=== PATIENT | female | born 1975 | race Caucasian/White ===

== ENCOUNTER 2016-06-07 16:12 | Emergency (ER) | payer SELFPAY ==
[2016-06-07 16:15] VITALS: BP 128/91; BMI 28.1
--- NOTE | 2016-06-07 16:25 | DR.HEADACH ---
HPI - Time Seen Time seen: 16:20 - Primary Care Physician Primary Care Physician: REZA - HPI Comment HPI Comment: GENERALIZE HEADACHE WITH N/C AND PHOTOPHOBIA. PATIENT SEEING FLOATERS AND HAVE NUMBNESS IN THE LEGS. HISTORY MIGRAINE. NOT ON MEDICATIONS. HAVE NOT HAVE AN ATTACK FOR FEW YEARS. DENIES TRAUMA. NO FEVER. - Complaint/Symptoms Chief Complaint Doctors Comments: HEADACHE. Chief Complaint:: SEVERE MIGRAINE THAT BEGAN DURING THE NIGHT. PT. C/O N/V, LEGS TINGLING, AND SEEING DARK SPOTS. Pertinent History: Headache, Hypertension. denies: Back Pain, Dizziness/ Weakness, Head Injury, Multiple Trauma, MVA - Reviewed Nurses Notes Reviewed: Yes - Source History Provided: Patient - Mode of Arrival Mode of Arrival: Ambulatory - Timing Onset of Chief Complaint: 06/07/16 - Duration Since Onset: Constant Duration: Hours - Location Headache Location: Generalized - Quality Quality: Throbbing - Severity Headache Severity: Moderate - Context Headache Onset Circumstances: Spontaneous History of: Hypertension Prior Work Up: None - Modifying Factors Improves With: Nothing Worsens: Light - Associated Signs and Symptoms Associated Symptoms: Nausea, Vomitting, Numbess (LEG) Aura: Visual PMH - PMH Past Medical History: Yes Past Medical History: Headaches, Hypertension, Hypothyroidism Past Surgical History: Yes Surgical History: , Tonsillectomy Past Surgical History Comment: SINUS SURGERY - Family History History of Family Medical Conditions: Yes Family Medical History: [place], Coronary Artery Disease - Social History Does patient currently use any type of tobacco product: No Have you used tobacco products in the last 12 months: No Type of Tobacco Use: None Does any household member use tobacco: No Alcohol Use: None Do you use any recreational Drugs:: No Lives With: Spouse Lives Where: Home - infectious screening In the last 2 months have you had wt loss of >10#?: NO Have you had fever, night sweats or hemotysis?: No Have you traveled outside the country in the last 6 months?: No Isolation: Standard ROS - Review of Systems Constitutional: No Symptoms Reported. negative: Chills, Fever Eyes: No Symptoms Reported. negative: Eye Pain, Discharge ENTM: No Symptoms Reported. negative: Ear Pain, Nose Discharge, Nose Congestion , Throat Pain Respiratoy: No Symptoms Reported Cardiovascular: No Symptoms Reported Gastrointestinal/Abdominal: No Symptoms Reported Genitourinary: No Symptoms Reported Neurological: Headache Musculoskeletal: No Symptoms Reported Integumentary: No Symptoms Reported Hematologic/Lymphatic: No Symptoms Reported Endocrine: No Symptoms Reported All Other Systems: Reviewed and Negative PE - Vital Signs Vitals: Temperature 98.3 F Pulse Rate 111 Respiratory Rate 16 Blood Pressure 128/91 O2 Sat by Pulse Oximetry 99 - General Limitations: No Limitations General Appearance: Alert - Head Head Exam: Normal Inspection - Eyes Eye exam: Normal Appearance Eyelids: Normal Inspection: Bilateral Pupils: Regular, Round: Bilateral, Reactive: Bilateral - ENT ENT Exam: Normal External Ear Exam External Ear Exam: Normal External Inspection TM/Canal Exam: Bilateral Normal Nose Exam: Normal Nose Exam Mouth Exam: Normal Inspection Teeth Exam: Normal Inspection Throat Exam: Normal Inspection - Neck Neck Exam: Trachea Midline - Chest Chest Inspection: Symmetric Chest Wall Rise - Respiratory Respiratory Exam: Normal Lung Sounds Bilat Respiratory Exam: Bilateral Clear to Auscultation - Cardiovascular Cardiovascular Exam: Regular Rate, Normal Rhythm, Normal Heart Sounds - Abdominal Exam Abdominal Exam: Normal Bowel Sounds, Soft. negative: Tenderness - Extremities Extremities Exam: Normal Inspection - Back Back Exam: Normal Inspection - Neurologic Neurological Exam: Alert, Oriented X3, CN II-XII Intact, Normal Gait, Reflexes Normal. negative: Motor Sensory Deficit - Psychiatric Psychiatric Exam: Anxious - Skin Skin Exam: Normal Color MDM - Differential Diagnosis Differential Diagnosis: Considerations may include:: Migraine, CVA, Sinusitis Course - Treatment Treatment: SEE REPORT.MEFD FOR PAIN IN ED. HEADACHE IMPROVING. - Education/Counseling Education/Counseling: Patient, Education Educated On: Treatment, Diagnosis, Needs for Follow Up ROR - XRAY XRAY Interpreted by: Radiologist XRAY Findings: REPORT DISCUSS WITH PATIENT. - Diagnosis Discharge Problem: Migraine headache Qualifiers: Migraine type: without aura Status migrainosus presence: without status migrainosus Intractability: not intractable Qualified Code(s): G43.009 - Migraine without aura, not intractable, without status migrainosus - Discharge Plan Disposition: HOME, SELF-CARE Condition: Stable Prescriptions: Ittseikdtb-Trnk-Omvsrave [Fioricet Tab] 1 tab PO Q8H PRN #20 tab PRN Reason: Migraine Headache Ondansetron HCl [Zofran Tab 4 mg] 4 mg PO Q8H PRN #12 tab PRN Reason: Nausea/Vomiting - Follow ups/Referrals Follow ups/Referrals: Jean Norton [Primary Care Provider] - 04/24/17 - Instructions Instructions: Migraine Headache Additional Instructions: RETURN TO ED IF WORSE.
[2016-06-07] MEDS ORDERED: ZOFRAN INJ 4 MG VIAL IM ONE (16:26)
[2016-06-07] MEDS ORDERED: TORADOL 60 MG VIAL IM ONE (16:26)
[2016-06-07] MEDS ORDERED: TORADOL 60 MG VIAL ONE (16:32)
[2016-06-07] MEDS ORDERED: ZOFRAN INJ 4 MG VIAL ONE (16:32)
--- NOTE | 2016-06-07 17:16 | CT ---
HISTORY: Headache, nausea Study: CT brain without contrast Comparison: None Technique: Multiple axial images of the brain were obtained from the skull base to the vertex without administr ation of IV contrast. Findings: Imaging of the brain demonstrates no intracranial hemorrhage, mass effect, or midline shift. No extr a-axial fluid collection is identified. There is no CT evidence to suggest acute or early subacute i nfarct. There are a few low attenuating foci identified within the periventricular white matter, fin dings which can be seen in the setting of chronic small vessel disease if the patient has the approp riate clinical risk factors for such. Demyelinating disease could possibly have this appearance as w ell. Clinical correlation is recommended in this regard. Correlation with MRI of the brain with and without contrast would be beneficial as well. The ventricles are symmetric and nondilated. The basil ar cisterns are patent. The bony structures are intact. IMPRESSION: 1. No acute intracranial process evident. However, please see above discussion regarding periventri cular lesions. Reported By:
[2016-06-07] MEDS ORDERED: DEMEROL INJ ONE (17:25)
[2016-06-07] MEDS ORDERED: DEMEROL INJ IM ONE (17:28)
[2016-06-07] MEDS ORDERED: FIORICET TAB PO ONE (18:39)
== END 2016-06-07 18:41 | disposition home or self-care (01) ==
LOC: ER 16:20
DX: G43.009 Migraine without aura, not intractable, without status migrainosus (principal)
CPT/HCPCS: 70450; 96372; 99283; J1885; J2175; J2405

== ENCOUNTER 2016-06-08 15:17 | Emergency (ER) | payer SELFPAY ==
[~2016-06-08 15:17] MED LIST: FIORICET TAB PO ONE
[2016-06-08 15:26] VITALS: BP 110/74; BMI 28.1
[2016-06-08] MEDS ORDERED: PHENERGAN INJ 25 MG IM ONE (16:53)
[2016-06-08] MEDS ORDERED: DEMEROL INJ IM ONE (16:53)
[2016-06-08] MEDS ORDERED: PHENERGAN INJ 25 MG ONE ×2 (16:56→17:00)
[2016-06-08] MEDS ORDERED: DEMEROL INJ ONE ×2 (16:56→17:00)
--- NOTE | 2016-06-08 16:56 | DR.GENAD ---
HPI - PCP Primary Care Physician: JEAN COBB - Complaint/Symptoms Chief Complaint Doctors Comments: Patient with a history migraine headaches and usually gets demerol and it is relieved. Have not had a migraine in quite a while. This headache is different in as much there is no aura and quiteness does not affect it. There is no vomiting Chief Complaint:: HEADACHE,MIGRAINE Self Treatment fo Chief Complaint: FIORCET AT HOME, - Source History Provided: Patient - Mode of Arrival Mode of Arrival: Ambulatory - Timing Onset of Chief Complaint: 06/05/16 PMH - PMH Past Medical History: Yes Past Medical History: Hypertension, Hyperthyroidism Past Surgical History: Yes Surgical History: , Tonsillectomy - Family History History of Family Medical Conditions: Yes Family Medical History: [place] - Social History Alcohol Use: None Do you use any recreational Drugs:: No Lives With: Spouse Lives Where: Home - infectious screening In the last 2 months have you had wt loss of >10#?: NO Have you had fever, night sweats or hemotysis?: No Have you traveled outside the country in the last 6 months?: No Isolation: Standard ROS - Review of Systems Constitutional: No Symptoms Reported Eyes: No Symptoms Reported ENTM: No Symptoms Reported Respiratoy: No Symptoms Reported Cardiovascular: No Symptoms Reported Gastrointestinal/Abdominal: No Symptoms Reported Genitourinary: No Symptoms Reported Neurological: No Symptoms Reported Musculoskeletal: No Symptoms Reported Integumentary: No Symptoms Reported Hematologic/Lymphatic: No Symptoms Reported Endocrine: No Symptoms Reported Psychiatric: No Symptoms Reported All Other Systems: Reviewed and Negative PE - Vital Signs Vitals: Temperature 98.3 F Pulse Rate 70 Respiratory Rate 16 Blood Pressure 110/74 O2 Sat by Pulse Oximetry 100 - General Limitations: No Limitations General Appearance: Alert, In No Apparent Distress - Head Head Exam: Normal Inspection, Atraumatic - Eyes Eye exam: Normal Appearance, PERRL, EOMI - ENT ENT Exam: Normal Exam External Ear Exam: Normal External Inspection TM/Canal Exam: Bilateral Normal Nose Exam: Normal Nose Exam Mouth Exam: Normal Inspection Throat Exam: Normal Inspection - Neck Neck Exam: Normal Inspection - Chest Chest Inspection: Normal Inspection - Respiratory Respiratory Exam: Normal Lung Sounds Bilat Respiratory Exam: Bilateral Clear to Auscultation - Cardiovascular Cardiovascular Exam: Regular Rate - Abdominal Exam Abdominal Exam: Normal Inspection Abdominal Tenderness: negative: RUQ, RLQ, LUQ, LLQ, Epigastrium, Suprapubic, Diffuse, Mild, Moderate, Severe, Other - Extremities Extremities Exam: Normal Inspection - Back Back Exam: Normal Inspection - Neurologic Neurological Exam: Alert, Oriented X3, CN II-XII Intact - Psychiatric Psychiatric Exam: Normal Affect - Skin Skin Exam: Warm, Dry, Intact Course - Reevaluation 1st: Improved - Diagnosis Discharge Problem: Migraine headache Qualifiers: Migraine type: without aura Status migrainosus presence: without status migrainosus Intractability: not intractable Qualified Code(s): G43.009 - Migraine without aura, not intractable, without status migrainosus - Discharge Plan Condition: Stable Prescriptions: Tramadol HCl 50 mg PO Q8H PRN #12 tab PRN Reason: Pain - Follow ups/Referrals Follow ups/Referrals: Jean Cobb [Primary Care Provider] - 3 days - Instructions
== END 2016-06-08 17:41 | disposition home or self-care (01) ==
LOC: ER 15:17
DX: G43.009 Migraine without aura, not intractable, without status migrainosus (principal)
CPT/HCPCS: 96372; 99282; J2175; J2550